=== PATIENT | male | born 1970 | race African-American/Black ===

== ENCOUNTER 2020-01-11 11:18 | Inpatient (IN) | payer OTHER ==
[2020-01-11 12:30] VITALS: BMI 24.0
[2020-01-11] MEDS ORDERED: chlordiazePOXIDE HCL 25 MG CAPSULE PO PRN (12:35)
[2020-01-11] MEDS ORDERED: MAGNESIUM CITRATE 300 ML BOTTLE PO PRN (12:35)
[2020-01-11] MEDS ORDERED: IBUPROFEN 400 MG TABLET (FP) PO PRN (12:35)
[2020-01-11] MEDS ORDERED: ONDANSETRON *ODT* 4 MG TABLET SL PRN (12:35)
[2020-01-11] MEDS ORDERED: ACETAMINOPHEN 325 MG TABLET (FP) PO PRN ×2 (12:35)
[2020-01-11] MEDS ORDERED: BISMUTH SUBSALICYLATE 524 MG/30 ML UD PO PRN (12:35)
[2020-01-11] MEDS ORDERED: MAG HYDROX/AL HYDROX/SIMETH 30 ML UNIT-DOSE CUP PO PRN (12:35)
[2020-01-11] MEDS ORDERED: METHOCARBAMOL 500 MG TABLET PO PRN (12:35)
[2020-01-11] MEDS ORDERED: MENTHOL/PHENOL 1 EACH UD MM PRN (12:35)
[2020-01-11] MEDS ORDERED: MAGNESIUM HYDROX 2400MG/30ML ORAL SUSPENSION 30 ML CUP PO PRN (12:35)
[2020-01-11] MEDS ORDERED: NICOTINE POLACRILEX 2 MG GUM BUC PRN (12:35)
[2020-01-11] MEDS: hydrOXYzine PAMOATE 25 MG CAPSULE (FP) PO SCH ×3 (13:37→22:09)
[2020-01-11] MEDS: PRENATAL VITAMINS W/ FOLIC ACID TABLET (FP) PO SCH (13:37)
[2020-01-11] MEDS: chlordiazePOXIDE HCL 25 MG CAPSULE PO SCH ×3 (13:38→22:09)
[2020-01-11] MEDS: NICOTINE 7 MG/24 HOURS TOPICAL PATCH TD SCH (13:38)
[2020-01-11] MEDS: THIAMINE HCL 100 MG TABLET (FP) PO SCH (22:09)
[2020-01-11] MEDS: MELATONIN 5 MG TABLETS PO SCH (22:10)
[2020-01-12] MEDS: chlordiazePOXIDE HCL 25 MG CAPSULE PO SCH ×4 (05:29→22:17)
[2020-01-12] MEDS: hydrOXYzine PAMOATE 25 MG CAPSULE (FP) PO SCH ×5 (05:29→22:18)
[2020-01-12 10:18] LABS: HEMATOCRIT 38.3 % (35.4-49); MCH 23.1 pg (25.7-33.7); MCHC 31.4 g/dl (32.0-35.9); MEAN CELL VOLUME 73.5 fl (80-96); PLATELET COUNT 247 K/MM3 (134-434); RBC 5.21 M/mm3 (4.00-5.60); RDW 15.3 % (11.9-15.9); WHITE BLOOD COUNT 10.5 K/mm3 (4.0-10.0)
[2020-01-12] MEDS: PRENATAL VITAMINS W/ FOLIC ACID TABLET (FP) PO SCH (10:19)
[2020-01-12] MEDS: NICOTINE 7 MG/24 HOURS TOPICAL PATCH TD SCH (10:21)
[2020-01-12 10:44] LABS: POTASSIUM 3.7 mmol/L (3.5-5.1)
[2020-01-12 10:50] LABS: ALBUMIN 3.6 g/dl (3.4-5.0); BLOOD UREA NITROGEN 7.8 mg/dL (7-18); CALCIUM 8.6 mg/dL (8.5-10.1)
[2020-01-12 10:54] LABS: CREATININE 0.9 mg/dL (0.55-1.3)
[2020-01-12 10:56] LABS: BILIRUBIN,TOTAL 1.2 mg/dL (0.2-1)
[2020-01-12 12:24] LABS: SYPHILIS W/ RPR CONF NON-REACTIVE (NONREACTIVE)
[2020-01-12 12:53] LABS: HIV INTERPRETATION NEGATIVE (NEGATIVE)
[2020-01-12] MEDS: THIAMINE HCL 100 MG TABLET (FP) PO SCH (22:18)
[2020-01-12] MEDS: traZODone HCL 100 MG TABLET (FP) PO SCH (22:18)
[2020-01-12] MEDS: MELATONIN 5 MG TABLETS PO SCH (22:18)
[2020-01-13] MEDS: chlordiazePOXIDE HCL 25 MG CAPSULE PO SCH ×4 (06:10→23:20)
[2020-01-13] MEDS: hydrOXYzine PAMOATE 25 MG CAPSULE (FP) PO SCH ×5 (06:10→23:20)
[2020-01-13] MEDS ORDERED: MASKS NR ONE (06:51)
[2020-01-13] MEDS: PRENATAL VITAMINS W/ FOLIC ACID TABLET (FP) PO SCH (10:05)
[2020-01-13] MEDS: NICOTINE 7 MG/24 HOURS TOPICAL PATCH TD SCH (10:06)
[2020-01-13] MEDS: traZODone HCL 100 MG TABLET (FP) PO SCH (23:19)
[2020-01-13] MEDS: MELATONIN 5 MG TABLETS PO SCH (23:20)
[2020-01-13] MEDS: THIAMINE HCL 100 MG TABLET (FP) PO SCH (23:20)
[2020-01-14] MEDS ORDERED: chlordiazePOXIDE HCL 10 MG CAPSULE PO PRN
[2020-01-14] MEDS ORDERED: chlordiazePOXIDE HCL 10 MG CAPSULE PO SCH (05:00)
[2020-01-14 06:29] VITALS: BP 109/77; PULSE 99; TEMP 98.4
[2020-01-14] MEDS: hydrOXYzine PAMOATE 25 MG CAPSULE (FP) PO SCH (07:16)
[2020-01-15] MEDS ORDERED: chlordiazePOXIDE HCL 10 MG CAPSULE PO SCH (05:00)
[2020-01-16] MEDS ORDERED: chlordiazePOXIDE HCL 10 MG CAPSULE PO ONE (05:00)
== END 2020-01-14 09:13 | disposition left against medical advice (07) | DRG 770 ==
LOC: YASAS 11:18 → Y3N 12:50
PROVIDERS: ADMIT Allergy & Immunology; ATTEND Allergy & Immunology
PROC: HZ2ZZZZ Detoxification Services for Substance Abuse Treatment (ICD-10-PCS; principal; 2020-01-11)
DX: F10.230 Alcohol dependence with withdrawal, uncomplicated (principal); F14.20 Cocaine dependence, uncomplicated; F19.20 Other psychoactive substance dependence, uncomplicated; F17.210 Nicotine dependence, cigarettes, uncomplicated; F25.9 Schizoaffective disorder, unspecified; Z56.0 Unemployment, unspecified; Z59.0 Homelessness; Z88.0 Allergy status to penicillin; Z88.1 Allergy status to other antibiotic agents; Z91.013 Allergy to seafood
CPT/HCPCS: 36415; 71046-TC-FY; 80053; 85027; 86780; 87389; 93005; 93010; C9803; U0003